=== PATIENT | male | born 1960 | race Caucasian/White ===

== ENCOUNTER 2019-10-10 14:16 | Emergency (ER) | payer SELFPAY ==
[~2019-10-10] VITALS: Ht 182.9 cm; Wt 77.0 kg
[2019-10-10] MEDS ORDERED: SODIUM CHLORIDE 0.9% 1,000 ML IV ONE (15:05)
[2019-10-10] MEDS ORDERED: ONDANSETRON HCL 4MG/2ML INJ IV STA (15:05)
[2019-10-10] MEDS ORDERED: TETANUS, DIPHTHERIA, PERTUSSIS VAC/PF 0.5ML (>7YR OLD) IM ONE (15:15)
[2019-10-10] MEDS ORDERED: LIDOCAINE 1%/EPI 1:100,000 10 ML VIAL IJ ONE (15:15)
[2019-10-10] MEDS ORDERED: CEFAZOLIN 1000MG PREMIX 50 ML IV ONE (15:15)
[2019-10-10] MEDS ORDERED: BACITRACIN ZINC OINT UDPKT TOP ONE (15:15)
[2019-10-10 15:28] LABS: BASOPHILS % 0.5 % (0.0-2.0); EOSINOPHILS % 0.5 % (0.0-5.0); HEMATOCRIT. 43.9 % (42.0-52.0); HEMOGLOBIN. 14.7 g/dL (14.0-18.0); LYMPHOCYTES % 20.4 % (20.0-50.0); MEAN CORPUSCULAR HEMOGLOBIN 31.8 pg (28.0-32.0); MEAN CORPUSCULAR VOLUME 94.8 fL (80.0-94.0); MEAN PLATELET VOLUME 6.6 fl (7.4-10.4); NEUTROPHILS % 72.6 % (40.0-76.0); PLATELET 259 x1000/uL (130-400); RED BLOOD CELL COUNT 4.63 mill/uL (4.7-6.1)
[2019-10-10 15:31] LABS: CHLORIDE 107 mEq/L (98-107)
[2019-10-10 15:34] LABS: PARTIAL THROMBOPLASTIN TIME 25.4 sec (23.4-31.0); PROTHROMBIN TIME 10.7 sec (9.6-11.0)
[2019-10-10 15:36] LABS: ETHANOL BLOOD 201 mg/dL
[2019-10-10] MEDS ORDERED: LIDOCAINE HCL/EPINEPHRINE 1%-EPI 1:100,000 20 ML VIAL INFIL NR (16:00)
[2019-10-10 17:50] LABS: *BARBITURATES SCREEN URINE NEGATIVE (NEGATIVE); *BENZODIAZEPINES SCREEN URINE NEGATIVE (NEGATIVE); *COCAINE SCREEN URINE NEGATIVE (NEGATIVE)
[2019-10-10 17:51] LABS: *AMPHETAMINES SCREEN URINE NEGATIVE (NEGATIVE); CANNABINOID URINE SCREEN PRESUMTIVE POSITIVE (NEGATIVE); METHADONE URINE SCREEN NEGATIVE (NEGATIVE); OPIATES URINE SCREEN NEGATIVE (NEGATIVE); PHENCYCLIDINE URINE SCREEN NEGATIVE (NEGATIVE)
[2019-10-10 21:01] VITALS: BP 152/92
== END 2019-10-10 21:03 | disposition home or self-care (01) ==
LOC: ER 14:31
DX: S01.01XA Laceration without foreign body of scalp, initial encounter (principal); T51.0X1A Toxic effect of ethanol, accidental (unintentional), initial encounter; I10 Essential (primary) hypertension; W01.0XXA Fall on same level from slipping, tripping and stumbling without subsequent striking against object, initial encounter; Y93.89 Activity, other specified; Y92.89 Other specified places as the place of occurrence of the external cause; Y99.8 Other external cause status; Y90.7 Blood alcohol level of 200-239 mg/100 ml
CPT/HCPCS: 12001; 36415; 70450; 80053; 80305; 80320; 83880; 84484; 85025; 85610; 85730; 90471; 90715; 93005; 96365; 96375; 99284; J0690; J2405; J3490; J7030; G0480

== ENCOUNTER 2019-10-17 10:29 | Emergency (ER) | payer OTHER ==
[~2019-10-17] VITALS: Ht 188 cm; Wt 74.0 kg
[2019-10-17 11:48] VITALS: BP 157/88
== END 2019-10-17 11:49 | disposition home or self-care (01) ==
LOC: ER 10:29
DX: S01.01XD Laceration without foreign body of scalp, subsequent encounter (principal); I10 Essential (primary) hypertension; Z98.890 Other specified postprocedural states; Z87.891 Personal history of nicotine dependence; X58.XXXD Exposure to other specified factors, subsequent encounter
CPT/HCPCS: 99282; Z7610

== ENCOUNTER 2023-01-20 01:45 | Emergency (ER) | payer OTHER ==
[~2023-01-20] VITALS: Ht 185.4 cm; Wt 75.0 kg
[2023-01-20] MEDS ORDERED: MORPHINE SULFATE 4 MG/ML CPJ (NOT FOR IM USE) IV STA (03:08)
[2023-01-20] MEDS ORDERED: ONDANSETRON HCL 4MG/2ML INJ IV STA (03:08)
[2023-01-20] MEDS ORDERED: ENALAPRIL 2.5MG/2ML VIAL 2ML IV ONE (03:15)
[2023-01-20] MEDS ORDERED: SODIUM CHLORIDE 0.9% 1,000 ML IV ONE (03:15)
[2023-01-20] MEDS ORDERED: NITROGLYCERIN OINT 1GM/INCH UDPKT TD ONE (03:15)
[2023-01-20 03:54] LABS: D-DIMER 10.97 mg/L FEU (<0.50)
[2023-01-20 03:56] LABS: BASOPHILS % 0.2 % (0.0-2.0); EOSINOPHILS % 0.2 % (0.0-5.0); HEMATOCRIT. 44.1 % (42.0-52.0); HEMOGLOBIN. 15.2 g/dL (14.0-18.0); LYMPHOCYTES % 8.8 % (20.0-50.0); MEAN CORPUSCULAR HEMOGLOBIN 32.2 pg (28.0-32.0); MEAN CORPUSCULAR VOLUME 93.2 fL (80.0-94.0); MEAN PLATELET VOLUME 7.8 fl (7.4-10.4); MONOCYTES % 7.4 % (2.0-8.0); NEUTROPHILS % 83.4 % (40.0-76.0); PLATELET 218 x1000/uL (130-400); RED BLOOD CELL COUNT 4.73 mill/uL (4.7-6.1); RED CELL DISTRIBUTION WIDTH 13.8 % (11.6-14.6)
[2023-01-20 04:25] LABS: CHLORIDE 102 mEq/L (98-107)
[2023-01-20] MEDS ORDERED: NICARDIPINE 100 MG in SODIUM CHLORIDE 0.9% 60 ML IV ONE (04:30)
[2023-01-20] MEDS ORDERED: NICARDIPINE 100 MG in SODIUM CHLORIDE 0.9% 60 ML IV NR (04:45)
[2023-01-20] MEDS ORDERED: ESMOLOL 2500MG PREMIX 250 ML IV ONE (05:30)
[2023-01-20] MEDS ORDERED: IOHEXOL-350 100 ML BOTTLE ONE (05:44)
[2023-01-20] MEDS ORDERED: ESMOLOL 2500MG PREMIX 250 ML IV NR (05:45)
[2023-01-20 06:00] VITALS: BP 216/127
== END 2023-01-20 07:14 | disposition short-term general hospital (02) ==
LOC: ER 01:45
DX: I71.03 Dissection of thoracoabdominal aorta (principal); I10 Essential (primary) hypertension; F17.210 Nicotine dependence, cigarettes, uncomplicated; Z91.14 Patient's other noncompliance with medication regimen
CPT/HCPCS: 36415; 71045; 71275; 74174; 76705; 80053; 83605; 83690; 83880; 84484; 85025; 85379; 85610; 86850; 86900; 86901; 93005; 96361; 96374; 96375; 99291; J2270; J2405; J3490; J7030; J7050; Q9967; Z7610